=== PATIENT | female | born 1970 | race Caucasian/White ===

== ENCOUNTER 2025-01-24 19:31 | Emergency (ER) | payer BC ==
[~2025-01-24] VITALS: Ht 165.1 cm; Wt 56.2 kg
[2025-01-24 20:13] VITALS: TEMP 98
[2025-01-24] MEDS ORDERED: HYDROCODONE/APAP 5/325MG TABLET ONE (22:04)
[2025-01-24] MEDS ORDERED: ONDANSETRON 4 MG TAB.RAPDIS ONE (22:05)
[2025-01-24] MEDS ORDERED: KETOROLAC TROMETHAMINE INJ 30 MG/ML VIAL ONE (22:05)
[2025-01-24] MEDS: HYDROCODONE/APAP 5/325MG TABLET PO ONE (22:15)
[2025-01-24] MEDS: ONDANSETRON 4 MG TAB.RAPDIS PO ONE (22:15)
[2025-01-24] MEDS: KETOROLAC TROMETHAMINE INJ 30 MG/ML VIAL IM ONE (22:16)
[2025-01-24] MEDS ORDERED: IBUP-1955 PO (22:17)
[2025-01-24] MEDS ORDERED: ACET325T53 PO (22:17)
[2025-01-24] MEDS ORDERED: BENZ1LOZ58 PO (22:17)
[2025-01-24 22:32] VITALS: BP 120/76; O2SAT 98
== END 2025-01-24 22:31 | disposition home or self-care (01) ==
LOC: ER 19:36
DX: S06.0XAA Concussion with loss of consciousness status unknown, initial encounter (principal); F17.200 Nicotine dependence, unspecified, uncomplicated; J02.9 Acute pharyngitis, unspecified; R05.9 Cough, unspecified; R51.9 Headache, unspecified; Z60.2 Problems related to living alone; Z79.899 Other long term (current) drug therapy; Z20.822 Contact with and (suspected) exposure to COVID-19; V89.2XXA Person injured in unspecified motor-vehicle accident, traffic, initial encounter; Y93.89 Activity, other specified; Y92.415 Exit ramp or entrance ramp of street or highway as the place of occurrence of the external cause; Y99.8 Other external cause status
CPT/HCPCS: 99285; 70450; 87426; 96372; 87804 ×2; J1885; Q0162